=== PATIENT | female | born 1960 | race Caucasian/White ===

== ENCOUNTER 2025-01-12 15:33 | Emergency (ER) | payer MEDICARE, SELFPAY ==
--- OUTSIDE RECORDS SUMMARY | 2025-01-12 15:36 | XMS_ITS | Clinical Summary ---
Author Organization [facility] Address [address] [place] [id number] Care Team Providers Care Cctv Technician Name Role Phone Radha Truong MD Primary Care Prov ider Allergies Active Allergy Reactions Criticality Noted Date Comments Unlisted Allergen (Include Detail In Comments) Rash High 03/21/2020 Dryer sheets/ fragrance Medications No known medications Active Problems Problem Noted Date Diagnosed Date Pap smear for cervical cancer screening 01/23/20 24 Overview (01/23/2024): 12/2023 NIL/HPV negative. Plan: Routine Screening. Encounters Date Type Department Care Team Description 01/12/2025 Nurse Triage [facility] [address] [place] [address] Radha Truong MD Musculoskeletal Problem from Last 3 Months Immunizations Immunization Administration Dates Next Due Influenza Virus, Unspecified 03/10/2020 Family History Medical History Relation Name Comments Cancer Father Lung disease Father Diabetes Mother Hyperlipidemia Mother Hypertension Mother Cancer-breast No Family History Cancer-colon No Family History Heart Disease No Family History Relation Name Status Comments Father Mother Alive Social History Tobacco Use Types Packs/Day Years Used Date Smoking Tobacco: Former Cigarettes S tarted: 09/28/1978 Smokeless Tobacco: Never Tobacco Cessation:Counseling Given: Not Answered Comments:couple every day-on and off since 20 Alcohol Use Standard Drinks/Week Comments Not Currently 0 (1 standard drink = 0.6 oz pur e alcohol) PHQ-2 Answer Date Recorded PHQ-2 TOTAL SCORE 0 01/13/2024 Social Connections Answer Date Recorded Do you often feel lonely or isolated from those around you? 0 01/13/2024 Financial Resource Strain Answer Date R ecorded Difficulty of Paying Living Expenses 3 01/13/2024 Difficulty of Paying Living Expenses Not on file 01/13/2024 Food Insecurity Answer Date Recorded Do you worry your food will run out before you are able to buy more? 1 01/13/2024 Transportation Needs Answer Date Record ed Does lack of transportation keep you from medica l appointments? 1 01/13/2024 Does lack of transportation keep you from work, meetings or getting things that you need? 1 01/13/2024 Housing Stability Answer Date Recorded What is your housing situation today? 1 01/13/2024 Utilities Answer Date Recorded Do you have trouble paying f or utilities (for example, heat, electricity, water, phone)? 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 Gender Identity Not on file Sexual Orientation Not on file Obstetrics History Last Filed Vital Signs Vital Sign Reading Time Taken Comments Blood Pressure 105/72 01/22/2024 8:37 AM CDT Pulse 67 01/22/2024 8:37 AM CDT Temperature 36.9 C (98.5 F) 03/21/2020 1:56 PM CDT Respiratory Rate - - Oxygen Saturation 97% 01/22/2024 8:37 AM CDT Inhaled Oxygen Concentration - - Weight 100.4 kg (221 lb 4 oz) 01/13/2024 8:25 AM CDT Height 162 cm (5' 3.78) 01/13/2024 8:25 AM CDT Body Mass Index 38.24 01/13/2024 8:25 AM CDT Plan of Treatment Health Maintenance Due Date Last Done Comments Tetanus booster 1969 Hepatitis C screening for age 18-79 1976 Colonoscopy through age 75 2003 Pneumococcal series for age 50+ (1 of 1 - PCV) 2008 Zoster (shingles) series for age 50+ (1 of 2) 2008 COVID-19 vaccine series ( season) 2024 05/03/2021, 09/20/2020, 08/25/2020 BMI (ht and wt on same day) for age 18+ 01/12/2025 01/13/2024, 03/21/2020 Depression screening for age 12+ 01/12/2025 01/13/2024, 10/02/2019, 10/01/2019, Additional history exists Medicare Wellness for age 65+ 01/13/2025 01/13/2024 Mammogram for age 45-75 01/21/2025 01/22/2024 Influenza Vaccine (#1) 2025 03/10/2020 Lipids for age 45-75 01/12/2029 01/13/2024 RSV vaccine for adults or (1 - 1-dose 75+ series) 2033 DEXA/DXA scan for age 65+ Completed 01/22/2024 Hepatitis B series for 19+ Aged Out N o longer eligible based on patient's age to complete this topic Procedures Procedure Name Priority Date/Time Associated Diagnosis Comments XR DXA BONE DENSITY 2 SITES AXIAL Routine 01/22/2024 9:53 AM CDT Post-menopausal XR MAMMO FAVIO BILAT SCREEN Routine 01/22/2024 9:50 AM CDT Visit for screening mammogram LIPID PANEL W REFLEX MEASURED LDL Routine 01/13/2024 9:23 AM CDT Screening for cardiovascular condition from Last 3 Months or Most Recently Relevant to Health Maintenance Results * (ABNORMAL) XR DXA BONE DENSITY 2 SITES AXIAL (01/22/2024 9:53 AM CDT) Anatomical Region Laterality Modality Spine, HIPS, HIPL, HIPR Other Impressions 01/31/2024 4:17 PM CDT Osteopenia. RECOMMENDATIONS: The National Osteoporosis Foundation recommends pharmacologic treatment for patients with T-scores of -2.5 or less, patients with prior history of fragility fractures, or patients with 10-year probability of greater than 3% at hips or greater than 20% of suffering major osteoporotic fractures. Recommend continued optimization of calcium and vitamin D intake through dietary means and/or supplementation and regular exercise. Repeat scan recommended in 3-5 years. Tami Riley PA-C [facility] 01/31/2024 Narrative 01/31/2024 4:17 PM CDT For Patients: Results are automatically released to your [facility] account once available, in compliance with federal regulations. This means that you may see your results before your provider has had a chance to review them. Please allow 2-3 business days for your provider to comment on the results. XR DXA Bone Mineral Density (BMD) EXAM LOCATION: [address] [address] PATIENT NAME: Cinthya Mane DATE OF : 1960 EXAM DATE: 01/22/2024 REQUESTING PROVIDER: Radha Truong MD GENDER AT : female HEIGHT: 5' 3.78 (01/13/2024) WEIGHT: 221 lb 4 oz (01/13/2024) MENOPAUSAL STATUS: Postmenopausal RACE/ETHNICITY: White RISK FACTORS: White Race CURRENT MEDICATION FOR BONE LOSS: NONE INDICATION: Initial scan for screening and Post-Menopause COMPARISON DATE(S): None DXA scans are compared to prior studies for a patient only when the two (or more) studies were performed on the same scanner. It is not possible to compare data generated on one scanner to data from another because there are not standards in DXA equipment. This applies even if the two scanners are made by the same senior technical trainer. PROCEDURE: Dual-energy x-ray absorptiometry performed with routine technique. Reporting is completed in the form of a T-score. The T-score represents the standard deviation from peak bone mass based on young healthy adult. A Z-score is used for diagnosis in premenopausal women, and for men under the age of 50. FINDINGS: RESULT LUMBAR SPINE L2 - L3 BMD: 1.789 g/cm2 T-Score: + 4.7 Z-Score: + 5.1 Change from prior: None RESULTS FEMUR Left femoral neck BMD: 0.853 g/cm2 T-Score: + 1.3 Z-Score: - 0.6 Change from prior: None Right femoral neck BMD: 0.890 g/cm2 T-Score: - 1.1 Z-Score: - 0.3 Change from prior: None Left hip BMD: 1.082 g/cm2 T-Score: + 0.6 Z-Score: + 1.0 Change from prior: None Right hip BMD: 1.059 g/cm2 T-Score: + 0.4 Z-Score: + 0.8 Change from prior: None WHO criteria: Normal: T-score at or above -1 SD Osteopenia: T-score between -1.1 and -2.4 SD Osteoporosis: T-score at or below -2.5 SD FRAX RISK CALCULATION (USED FOR OSTEOPENIA ONLY): 10-year probability of major osteoporotic fracture: 7.9%. 10-year probability of hip fracture: 0.7%. Radha Truong MD DEXA Fi nal Result * XR MAMMO FAVIO BILAT SCREEN (01/22/2024 9:50 AM CDT) Anatomical Region Laterality Modality BREASTS, Breast Left, Breast Right Bilateral Mammography 01/22/2024 3:23 PM CDT Addenda Addendum by Cruz Monae MD on 02/26/2024 2:10 PM CDT Patient has been contacted twice and does not wish to return for additional imaging. Impressions 01/23/2024 3:28 PM CDT RIGHT breast asymmetry/mass. RECOMMENDATIONS: RIGHT breast ultrasound recommended. A member of the health care team will contact the patient to schedule the required additional imaging appointment(s). BI-RADS Category 0: Incomplete: Need Additional Imaging Evaluation and/or Prior Mammograms for Comparison Dictated by: Cruz Monae MD @01/22/2024 3:23:39 PM /sp PATIENTS: You will also receive a letter with your examination results in an easy to read format. If you have questions about your results, please contact your referring provider. Narrative 01/23/2024 3:28 PM CDT As a result of the Century Cures Act, medical imaging exams and procedure reports are released immediately into your electronic medical record. You may view this report before your referring provider. If you have questions, please contact your health care provider. BILATERAL BREAST MAMMOGRAM DIGITAL SCREENING WITH COMPUTER-AIDED DETECTION AND TOMOSYNTHESIS 01/22/2024 CLINICAL HISTORY: Routine screening exam. COMPARISON: None. TECHNIQUE: Digital mammogram in CC and MLO projections including computer-aided detection (CAD). Tomosynthesis was used in this interpretation. BREAST COMPOSITION: There are scattered areas of fibroglandular density. FINDINGS: RIGHT Breast: Nodular density in the axillary region retroareolar plane laterally. Probable lymph node. LEFT Breast: No suspicious findings. us Radha Truong MD MAMMO Ed ited Result - Final * (ABNORMAL) LIPID PANEL W REFLEX MEASURED LDL [[id number]] (01/13/2024 9:23 AM CDT) CHOLESTEROL,TOTAL 216(H) 100 - 199 mg/dL 01/13/2024 4:12 PM CDT [facility] Comment: Cholesterol, Total Reference Ranges Desirable <200 mg/dL Borderline 200-239 mg/dL High >=240 mg/dL TRIGLYCERIDES 135 <150 mg/dL 01/13/2024 4:12 PM CDT [facility] HDL CHOLESTEROL 67 >40 mg/dL 4:12 PM CDT [facility] NON-HDL CHOLESTEROL 149(H) <145 mg/dl 01/13/2024 4:12 PM CDT [facility] CHOL/HDL RATIO 3.22 <4.50 01/13/2024 4:12 PM CDT [facility] LDL CHOLESTEROL 122 <=130 mg/dL 01/13/2024 4:12 PM CDT [facility] VLDL CHOLESTEROL 27 <=30 mg/dL 01/13/2024 4:12 PM CDT [facility] PROVIDER ORDERED STATUS RANDOM 01/13/2024 4:12 PM CDT [facility] Blood BLOOD SPECIMEN / Unknown Venipuncture / Unknown 01/13/2024 9:23 AM CDT 01/13/2024 9:23 AM CDT us Radha Truong MD CHEMISTRY Fi nal Result [facility] [address] [place] [address], from Last 3 Months or Most Recently Relevant to Health Maintenance Insurance [id number] [place] [id number] [facility] [place] [address] * Guarantor: [employer] Account Type Relation to Patient Date of Phone Billing Address [facility] Employer [id number] [place] [address] Care Teams Cctv Technician Relationship Specialty Start Date End Date Radha Truong MD [facility] [id number] PCP - General Family Practice 01/13/24
[2025-01-12 15:37] VITALS: BP 145/88; PULSE 88; RESP 16; TEMP 37; O2SAT 94; BMI 37.3
--- NOTE | 2025-01-12 15:58 | ED.GENADULT ---
HPI - General Adult General Time Seen by Provider: 15:58 Date Seen: 01/12/25 Chief complaint: Neck Injury/Pain Stated complaint: Right side pain from neck to flank, arm as well Time Seen by Provider: 01/12/25 15:54 Source: patient and RN notes reviewed Mode of arrival: ambulatory Limitations: no limitations History of Present Illness HPI narrative: This 64-year-old female is coming in for neck and low back pain. She contacted the clinic to be evaluated but they told her to get here to the ED emergently. She has had symptoms for up to 6 months. No fevers, no history of cancer, no trauma, no smoking. She has been taking generic Tylenol every 6 hours or so. She does get pain going down the right arm from the neck, she feels pain in the right bottock and feels the pain go down the outside of the thigh. No bowel or bladder dysfunction. No numbness or tingling. Maybe her legs feel weak at times but walking without difficulty. Related Data Previous Rx's ?Medication ?Instructions ?Recorded prednisone 20 mg tablet 20 mg PO DAILY #7 tabs 01/12/25 Allergies Allergy/AdvReac Type Severity Reaction Status Date / Time No Known Drug Allergies Allergy Verified 01/12/25 15:41 Review of Systems Narrative: As per HPI. PFSH PFS Social History Smoking Status: Former smoker How often do you have a drink containing alcohol: never How often do you have six or more drinks on one occasion: Never AUDIT-C Alcohol total score: 0 Non-prescribed substance use: denies use Exam Const: Vital Signs, click to edit/add: Vital Signs - 24 hr 01/12/25 15:37 Temperature 98.6 F Pulse Rate [Pulse Oximeter] 88 Respiratory Rate 16 Blood Pressure [Ri ght Upper Arm] 145/88 H Pulse Oximetry 94 Oxygen Delivery Me thod Room Air This 64-year-old female is alert, interactive, no apparent stress. Was ambulatory into the ED of her own accord, gait is normal. She is when palpating deep into the right buttock. Strength throughout both upper extremities and lower extremities is 5/5 and symmetric. Could not get DTRs. Negative straight leg raising the right arm. No increased pain with facet compression in her neck. Her shoulder has full range of motion without any evidence of any definitive rotator cuff pathology, normal arc of abduction and no compression symptoms of the rotator cuff. She has normal light touch sensation throughout her extremities, skin is warm and dry throughout. Normal peripheral pulses. Documenting provider has reviewed patient's vital signs: yes Course Course ED Course: Have reviewed with patient that she probably has degenerative disease of her spine. It is not uncommon for people who both have cervical and lumbar issues. She has no red flag warnings at this time. We can do some plain imaging of her cervical spine and lumbar spine. I do not see any need for anything further, no emergent MRI is indicated at this time. Clinically she is describing some radiculopathy. May benefit from further evaluation and treatment down the road but we will start with x-ray images here. Vital Signs Vital signs: Initial Vital Signs Temperature 98.6 F 01/12/25 15:37 Temperature Source Temporal Artery Scan 01/12/25 15:37 Pulse Rate 88 01/12/25 15:37 Respiratory Rate 16 01/12/25 15:37 Blood Pressure 145/88 H 01/12/25 15:37 Blood Pressure Mean 107 H 01/12/25 15:37 Blood Pressure Position Sitting 01/12/25 15:37 Pulse Oximetry 94 01/12/25 15:37 Oxygen Delivery Method Room Air 01/12/25 15:37 Vital Signs Temperature 98.6 F 01/12/25 15:37 Pulse Rate 88 01/12/25 15:37 Respiratory Rate 16 01/12/25 15:37 Blood Pressure 145/88 H 01/12/25 15:37 Pulse Oximetry 94 01/12/25 15:37 Oxygen Delivery Method Room Air 01/12/25 15:37 Temperature 98.6 F 01/12/25 15:37 Pulse Rate 88 01/12/25 15:37 Respiratory Rate 16 01/12/25 15:37 Blood Pressure 145/88 H 01/12/25 15:37 Pulse Oximetry 94 01/12/25 15:37 Oxygen Delivery Method Room Air 01/12/25 15:37 Medical Decision Making Imaging Data XR cervical spine: Attestation: I have reviewed the pertinent imaging results. Radiologist's impression: Patient: ARIEL RONDON Facility:?[facility] Patient ID:?[id number] Site Patient ID:?[id number]. Site :?1960 Study:?XRay-Spine Cervical 2V-01/12/2025 4:39:18 PM Ordering Physician:?Isidra Art Final Report: INDICATION: Neck pain with right radiculopathy.. TECHNIQUE: Cervical spine 3 view. COMPARISON: None. FINDINGS: Bones: Grade 1 anterolisthesis of C4 on C5.. No fractures or significant bone lesions. Joints: Disc spaces and facets demonstrate multilevel degenerative changes, worst at the C3-C4 and C4-C5 levels.. Soft tissues: Unremarkable. Dictated by Carlitos Long MD @ 01/12/2025 4:57:35 PM (Electronic Signature) XR lumbar spine: Attestation: I have reviewed the pertinent imaging results. Radiologist's impression: Patient: ARIEL RONDON Facility:?[facility] Patient ID:?[id number] Site Patient ID:?[id number]. Site :?1960 Study:?XRay-Spine Lumbar 2V-01/12/2025 4:39:48 PM Ordering Physician:?Isidra Art Final Report: INDICATION: Low back pain. Right radiculopathy into thigh. TECHNIQUE: Lumbar spine two views. COMPARISON: None. FINDINGS: Grade 1 anterolisthesis of L2 on L3 is likely degenerative in nature. Klzq-gy-enqducxm multilevel degenerative changes are greatest at L4-5. No acute or other osseous abnormality demonstrated. Paraspinal soft tissues as imaged are unremarkable. IMPRESSION: Wvmk-ec-zoodwjww lumbar degenerative changes. Dictated by Seun Darden MD @ 01/12/2025 5:01:58 PM (Electronic Signature) Discharge Plan Discharge Clinical Impression: Cervical radiculopathy, Lumbar radiculopathy Degenerative disc disease Qualifiers: Spinal region: unspecified cervical region Qualified Code(s): M50.30 - Other cervical disc degeneration, unspecified cervical region Degenerative disc disease, lumbar Qualifiers: Disc-related pain type: discogenic back pain and lower extremity pain Qualified Code(s): M51.362 - Other intervertebral disc degeneration, lumbar region with discogenic back pain and lower extremity pain Patient Disposition: Home, Self-Care Condition: Stable Instructions: Lumbar Radiculopathy (ED), Cervical Radiculopathy (ED), Degenerative Disc Disease (ED) Additional Instructions: Will try a course of steroids to see if it gives use some relief. Can continue with Tylenol per bottle directions. I have given a therapy form, can contact physical therapy for appointment. You do need to follow up in clinic, can bring x-ray reports to them. May need to consider MRI imaging if ongoing symptoms or not improving with outlined treatment, talk to clinic provider further regarding this. Activity Level: Activity as Tolerated Prescriptions: New prednisone 20 mg tablet 20 mg PO DAILY Qty: 7 0RF Follow Up/Referrals: Provider,Not a Local [Primary Care Provider, Family Practice] Stand Alone Forms: ITN Info Instructions
--- NOTE | 2025-01-12 16:06 | CRLHL7_ITS ---
For Patients: As a result of the Century Cures Act, medical imaging exams and procedure reports are released immediately into your electronic medical record. You may view this report before your referring provider. If you have questions, please contact your health care provider. INDICATION: Low back pain. Right radiculopathy into thigh. TECHNIQUE: Lumbar spine two views. COMPARISON: None. FINDINGS: Grade 1 anterolisthesis of L2 on L3 is likely degenerative in nature. Yktr-kq-yyaeobig multilevel degenerative changes are greatest at L4-5. No acute or other osseous abnormality demonstrated. Paraspinal soft tissues as imaged are unremarkable. IMPRESSION: Chel-mp-xivrwqim lumbar degenerative changes. Dictated by Seun Darden MD @ 01/12/2025 5:01:58 PM (Electronically Signed)
--- NOTE | 2025-01-12 16:06 | CRLHL7_ITS ---
For Patients: As a result of the Century Cures Act, medical imaging exams and procedure reports are released immediately into your electronic medical record. You may view this report before your referring provider. If you have questions, please contact your health care provider. INDICATION: Neck pain with right radiculopathy.. TECHNIQUE: Cervical spine 3 view. COMPARISON: None. FINDINGS: Bones: Grade 1 anterolisthesis of C4 on C5.. No fractures or significant bone lesions. Joints: Disc spaces and facets demonstrate multilevel degenerative changes, worst at the C3-C4 and C4-C5 levels.. Soft tissues: Unremarkable. Dictated by Carlitos Long MD @ 01/12/2025 4:57:35 PM (Electronically Signed)
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
== END 2025-01-12 17:43 | disposition home or self-care (01) ==
PROVIDERS: Emergency Provider Family Medicine
DX: M54.12 Radiculopathy, cervical region (principal); M54.16 Radiculopathy, lumbar region
CPT/HCPCS: 72040; 72100; 99283; 99284